=== PATIENT | female | born 1945 | race Caucasian/White ===

== ENCOUNTER 2017-10-31 12:57 | Day surgery (SDC) | payer MEDICARE, OTHER ==
[~2017-10-31] VITALS: Ht 160 cm; Wt 49.2 kg
[~2017-10-31 12:57] MED LIST: ASPI325
[2017-10-31] MEDS ORDERED: CLOB.05TO (13:53)
== END 2017-10-31 15:38 | disposition home or self-care (01) ==
LOC: ORSCSDS 12:57
PROVIDERS: Surgery
PROC: 0DJD8ZZ Inspection of Lower Intestinal Tract, Via Natural or Artificial Opening Endoscopic (ICD-10-PCS; principal; 2017-10-31 14:15)
DX: Z12.11 Encounter for screening for malignant neoplasm of colon (principal); K57.30 Diverticulosis of large intestine without perforation or abscess without bleeding
CPT/HCPCS: J7120

== ENCOUNTER → 2021-12-15 | Outpatient (CLI) | payer MEDICARE, OTHER ==
[~2021-12-15] MED LIST changes: +CLOB.05TO
== END | disposition home or self-care (01) ==
LOC: LAB SHORT 11:31 → LAB 11:31
DX: R50.9 Fever, unspecified (principal)
CPT/HCPCS: 87086

== ENCOUNTER 2023-03-03 11:41 | Day surgery (SDC) | payer MEDICARE, OTHER ==
[~2023-03-03] VITALS: Ht 157.5 cm; Wt 52.3 kg
[2023-03-03] MEDS ORDERED: PRAV20 PO (12:13)
--- NOTE | 2023-03-03 14:07 | NUR ---
03/03/23 1407 Nuha Lambert NORMAL SALINE FLUID DEFICIT OF 20MLS NOTED ON [employer]. NOTIFIED.
[2023-03-03 14:29] VITALS: BP 145/83
== END 2023-03-03 15:11 | disposition home or self-care (01) ==
LOC: ORSCSDS 11:41
PROVIDERS: Obstetrics & Gynecology
PROC: 0UDB8ZX Extraction of Endometrium, Via Natural or Artificial Opening Endoscopic, Diagnostic (ICD-10-PCS; principal; 2023-03-03 13:00)
DX: R93.89 Abnormal findings on diagnostic imaging of other specified body structures (principal); N93.9 Abnormal uterine and vaginal bleeding, unspecified; E78.2 Mixed hyperlipidemia; Z79.899 Other long term (current) drug therapy
CPT/HCPCS: 88305; J1100; J1885; J2405; J2704; J3010

== ENCOUNTER 2023-04-27 08:14 | Day surgery (SDC) | payer MEDICARE ==
[~2023-04-27] VITALS: Ht 157.5 cm; Wt 51.1 kg
[2023-04-27] VITALS (26 sets, daily range): BP systolic 97–158; BP diastolic 59–92
[~2023-04-27 08:14] MED LIST changes: +Lactated Ringer's 1,000 ML IV SCH; +PRAV20 PO
--- NOTE | 2023-04-27 08:48 | NUR ---
History, Chart, Medications and Allergies reviewed before start of procedure. Lungs clear T/O to Auscultation. Patient confirms NPO status and agrees with scheduled surgery. Pre-Op teaching done. Pt verbalizes understanding. Patient States Post-Procedure ride home has been arranged. Patient states colon prep results clear.
[2023-04-27] MEDS ORDERED: propofoL 40 ML IV ONE (09:25)
--- NOTE | 2023-04-27 09:35 | NUR ---
04/27/23 0935 Sp Reilly HISTORY, CHART, MEDICATIONS AND ALLERGIES REVIEWED BEFORE START OF PROCEDURE. PATIENT CONFIRMS NPO STATUS AND AGREES WITH SCHEDULED PROCEDURE. 3-LEAD EKG REVIEWED WITH PHYSICIAN PRIOR TO START OF PROCEDURE. MONITOR INTACT WITH CONTINUOUS PULSE OXIMETRY,CAPNOGRAPHY, 3-LEAD EKG, INTERMITTENT BP. SUPPLEMENTAL O2 TO BE TITRATED THROUGHOUT PROCEDURE TO MAINTAIN O2 SATURATION ABOVE 90%. PATIENT DETERMINED TO BE ASA APPROPRIATE FOR PROPOFOL SEDATION PRIOR TO START OF PROCEDURE BY
--- NOTE | 2023-04-27 10:48 | NUR ---
Patient up to Ambulate independently. Gait steady. Discharge instructions reviewed with patient. Patient verbalizes understanding. Copy given to patient to take home, [facility]. Patient States Post-Procedure ride home has been arranged. Discharged via wheelchair to private car for ride home.
== END 2023-04-27 10:48 | disposition home or self-care (01) ==
LOC: ORSCMMR 08:14 → ORD 09:00 → ORSCMMR 10:48
PROVIDERS: Internal Medicine Gastroenterology
PROC: 0DJD8ZZ Inspection of Lower Intestinal Tract, Via Natural or Artificial Opening Endoscopic (ICD-10-PCS; principal; 2023-04-27 09:00)
DX: K62.5 Hemorrhage of anus and rectum (principal); K57.30 Diverticulosis of large intestine without perforation or abscess without bleeding; E78.00 Pure hypercholesterolemia, unspecified; Z79.899 Other long term (current) drug therapy
CPT/HCPCS: J2704; J7120